=== PATIENT | female | born 1955 | race Caucasian/White ===

== ENCOUNTER 2020-05-08 12:58 | Outpatient (CLI) | payer OTHER, SELFPAY ==
--- NOTE | 2020-05-08 13:07 | CT_ITS ---
WS: [id number] LDCT LUNG CANCER SCREENING TECHNIQUE: Noncontrast CT of the chest with coronal and sagittal reformatted images. CLINICAL INFORMATION: HX OF TOBACCO USE/NICOTINE DEPENDENCE, CIGARETTES COMPARISON: None. DLP: 51.32 mGy.cm DIvol: 1.[address] scans at [facility] use at least one of these dose optimization techniques: automat ed exposure control; mA and/or kV adjustment per patient size (includes targeted exams where dose is matched to clinical indication); or iterative reconstruction. FINDINGS: Noncalcified 4 mm nodule right upper lobe. Additional noncalcified nodule right upper lobe measuring 5 mm. No mediastinal or hilar lymphadenopathy. Vascular calcification including coronary. Small esoph ageal hiatal hernia. CT/CT lung screening [id number] IMPRESSION: LUNG-RADS: 2-Benign Appearance or Behavior FOLLOW UP: 12 Month: Continue annual screening with LDCT
== END 2020-05-08 12:59 | disposition home or self-care (01) ==
LOC: RAD 13:04
PROVIDERS: Visit Provider Nurse Practitioner Family
DX: Z12.2 Encounter for screening for malignant neoplasm of respiratory organs (principal); Z87.891 Personal history of nicotine dependence
CPT/HCPCS: G0297

== ENCOUNTER → 2021-10-29 13:30 | Outpatient (BNVA) | payer OTHER, SELFPAY | PROVIDERS: PCP Nurse Practitioner Family; Referring Provider Nurse Practitioner Family; Visit Provider Specialist | DX: G30.9 Alzheimer's disease, unspecified (principal); F02.80 Dementia in other diseases classified elsewhere, unspecified severity, without behavioral disturbance, psychotic disturbance, mood disturbance, and anxiety | CPT/HCPCS: 96116; 99204; 99205 ==

== ENCOUNTER 2022-03-04 15:59 | Outpatient (CLI) | payer MEDICARE, SELFPAY ==
--- NOTE | 2022-03-04 16:28 | XR_ITS ---
WS: [id number] Lumbar spine, AP view, L5-S1 spot, both obliques, lateral view, 03/04/2022 Clinical Data: SI joint dysfunction Comparison: None. Findings: There is osteoarthritic change of all the lumbar vertebral bodies and of the lower thoracic vertebral bodies.. There is degenerative disc narrowing at L5-S1. No compression fractures or subluxation is s een. The oblique films show no spondylolysis. The transverse processes and SI joints are unremarkable. There is calcification in the wall of the ab dominal aorta but no aneurysm. XR/XR lumbar spine min 4V [id number] Impression: 1. Osteoarthritis of all the lumbar vertebral bodies. 2. Degenerative disc narrowing at L5-S1.
== END 2022-03-04 16:00 | disposition home or self-care (01) ==
PROVIDERS: Visit Provider Family Medicine
DX: M47.896 Other spondylosis, lumbar region (principal); G89.29 Other chronic pain; M54.50 Low back pain, unspecified; E78.5 Hyperlipidemia, unspecified; I10 Essential (primary) hypertension
CPT/HCPCS: 72110; 80053; 80061; 85025

== ENCOUNTER → 2022-09-09 12:21 | Outpatient (BNVA) | payer MEDICARE, OTHER, SELFPAY | PROVIDERS: Referring Provider Specialist; Visit Provider Specialist | DX: G30.9 Alzheimer's disease, unspecified (principal); F02.80 Dementia in other diseases classified elsewhere, unspecified severity, without behavioral disturbance, psychotic disturbance, mood disturbance, and anxiety | CPT/HCPCS: 99214 ==

== ENCOUNTER → 2023-02-08 14:53 | Outpatient (BNVA) | payer MEDICARE, OTHER, SELFPAY | PROVIDERS: Visit Provider Specialist | DX: G30.9 Alzheimer's disease, unspecified (principal); F02.80 Dementia in other diseases classified elsewhere, unspecified severity, without behavioral disturbance, psychotic disturbance, mood disturbance, and anxiety | CPT/HCPCS: 96116; 99213 ==

== ENCOUNTER → 2023-08-09 12:33 | Outpatient (BNVA) | payer MEDICARE, SELFPAY | PROVIDERS: Visit Provider Specialist | DX: G30.9 Alzheimer's disease, unspecified (principal); F02.80 Dementia in other diseases classified elsewhere, unspecified severity, without behavioral disturbance, psychotic disturbance, mood disturbance, and anxiety; F51.04 Psychophysiologic insomnia | CPT/HCPCS: 99213 ==

== ENCOUNTER → 2024-02-16 13:21 | Outpatient (BNVA) | payer MEDICARE, SELFPAY | PROVIDERS: Visit Provider Specialist | DX: R29.90 Unspecified symptoms and signs involving the nervous system (principal); G30.9 Alzheimer's disease, unspecified; F02.80 Dementia in other diseases classified elsewhere, unspecified severity, without behavioral disturbance, psychotic disturbance, mood disturbance, and anxiety; M54.50 Low back pain, unspecified; G89.29 Other chronic pain | CPT/HCPCS: 99213 ==

== ENCOUNTER → 2024-07-06 16:48 | Outpatient (BNVA) | payer MEDICARE, SELFPAY | DX: S43.034A Inferior dislocation of right humerus, initial encounter (principal); M19.011 Primary osteoarthritis, right shoulder; R52 Pain, unspecified; W19.XXXA Unspecified fall, initial encounter | CPT/HCPCS: 73030 ==

== ENCOUNTER 2024-07-06 17:26 | Emergency (ER) | payer MEDICARE, SELFPAY ==
[2024-07-06 17:55] VITALS: BP 107/73; PULSE 78; RESP 16; TEMP 36.7; O2SAT 95; BMI 39.0
[2024-07-06 18:55] VITALS: BP 129/84; PULSE 80; RESP 18; O2SAT 94
--- NOTE | 2024-07-06 19:03 | XRR_ITS ---
PROCEDURE INFORMATION: Exam: XR Right Shoulder Exam date and time: 07/06/2024 7:17 PM Age: 69 years old Clinical indication: Injury or trauma; Fall; Dislocation; Severity not specified; Shoulder; Right; Additional info: Shoulder reduction TECHNIQUE: Imaging protocol: Radiologic exam of the right shoulder. Views: 2 or more views. COMPARISON: CR XR shoulder RT min 2V* [id number] 07/06/2024 4:57 PM FINDINGS: Bones/joints: Status post reduction of the previously seen anterior inferior dislocation with current satisfactory alignment. There are severe degenerative changes across the acromioclavicular joint. Soft tissues: Glenohumeral joint effusion. XR/XR shoulder RT min 2V* [id number] IMPRESSION: Glenohumeral joint is currently in satisfactory alignment.
[2024-07-06] MEDS: ketamine 100 mg/mL Inj 5 mL IVP (19:06)
[2024-07-06 19:07] VITALS: BP 129/84; PULSE 82; RESP 19; O2SAT 94
[2024-07-06 19:10] VITALS: BP 130/85; PULSE 79; RESP 19; O2SAT 98
--- NOTE | 2024-07-06 19:13 | W.ED.EXTPRO ---
Documented by User: Cristhian Sarmiento DO 07/07/24 00:16 HPI - Extremity Problem General: Chief complaint: Extremity Injury, Upper Stated complaint: Risht shoulder injury Time Seen by Provider: 07/06/24 17:54 Related Data Home Medications Medication Instructions Recorded Confirmed albuterol sulfate 2.5 mg/3 mL 2.5 mg inhalation Q4H PRN 10/29/21 07/06/24 (0.083 %) solution for nebulization Previous Rx's Medication Instructions Recorded fluticasone 250 mcg-salmeterol 50 1 inh inhalation Q12H #60 ea 11/27/22 mcg/dose blistr powdr for inhalation (Advair Diskus) albuterol sulfate 90 mcg/actuation 2 inh inhalation Q6H PRN shortness 01/15/23 breath activated powder inhaler of breath #1 ea rosuvastatin 20 mg tablet 20 mg PO DAILY #90 tabs 01/15/23 atenolol 25 mg tablet See Rx Instructions .Route 04/01/23 .COMPLEX #30 tabs amitriptyline 50 mg tablet See Rx Instructions .Route 02/01/24 .COMPLEX #30 tabs galantamine 8 mg tablet 8 mg PO BID 90 days #180 tabs 05/17/24 memantine 10 mg tablet See Rx Instructions .Route 06/06/24 .COMPLEX #180 tabs hydrocodone 5 mg-acetaminophen 325 1 tab PO Q6H PRN pain #14 tabs 07/06/24 mg tablet Allergies Allergy/AdvReac Type Severity Reaction Status Date / Time No Known Allergies Allergy Verified 07/06/24 16:43 [facility] ED PFSH: Medical History History of stroke COPD (chronic obstructive pulmonary disease) Benign essential HTN Surgical History S/P right oophorectomy Family History Other CAD (coronary artery disease) Dementia Hyperlipidemia Lung disease Stroke Denies family history of Diabetes Clotting disorder Psychiatric illness Chronic kidney disease (CKD) Suicide Anesthesia complication Bleeding disorder Family history of premature coronary artery disease Cancer Hypertension Social History Smoking and tobacco/nicotine status: former use of tobacco/nicotine Procedures Procedural Sedation Presedation Evaluation: Right shoulder dislocation anterior, ASA Class: II Preparation: phototypesetting equipment monitor applied, pulse oximeter, supplemental O2 applied, suction/airway equipment at bedside and IV secured Ketamine: IV Ketamine dose (mg): 100 Patient Tolerated Procedure: well and no complications Course Vital Signs: Vital signs: Vital Signs Temperature 98.1 F 07/06/24 17:55 Pulse Rate 78 07/06/24 21:31 Respiratory Rate 18 07/06/24 21:31 Blood Pressure 127/73 07/06/24 21:31 Pulse Oximetry 96 07/06/24 21:31 Oxygen Delivery Me thod Nasal Cannula 07/06/24 19:10 Oxygen Flow Rate 2 07/06/24 19:10 MDM - Extremity (Nontraumatic) Lab Data Radiology Impressions Shoulder X-Ray 07/06/24 19:03 IMPRESSION: Glenohumeral joint is currently in satisfactory alignment. All radiology interpretation(s) finalized by discharge Discharge Plan Discharge Patient Disposition: Home Clinical Impression: Closed inferior dislocation of right shoulder Condition: Stable Prescriptions: New hydrocodone-acetaminophen 5-325 mg tablet 1 tab PO Q6H PRN (Reason: pain) Qty: 14 0RF No Action albuterol sulfate 2.5 mg /3 mL (0.083 %) solution for nebulization 2.5 mg inhalation Q4H PRN fluticasone propion-salmeterol [Advair Diskus] 250-50 mcg/dose blister with device 1 inh inhalation Q12H Qty: 60 3RF albuterol sulfate 90 mcg/actuation aerosol powdr breath activated 2 inh inhalation Q6H PRN (Reason: shortness of breath) Qty: 1 3RF rosuvastatin 20 mg tablet 20 mg PO DAILY Qty: 90 1RF Rx Instructions: Please disregard prior Rx atenolol 25 mg tablet See Rx Instructions .ROUTE .COMPLEX Qty: 30 0RF Dose Instruction: TAKE ONE TABLET BY MOUTH DAILY Rx Instructions: TAKE ONE TABLET BY MOUTH DAILY amitriptyline 50 mg tablet See Rx Instructions .ROUTE .COMPLEX Qty: 30 5RF Dose Instruction: TAKE ONE TABLET BY MOUTH DAILY FOR 30 DAYS Rx Instructions: TAKE ONE TABLET BY MOUTH DAILY FOR 30 DAYS galantamine 8 mg tablet 8 mg PO BID 90 Days Qty: 180 5RF memantine 10 mg tablet See Rx Instructions .ROUTE .COMPLEX Qty: 180 3RF Dose Instruction: TAKE ONE TABLET BY MOUTH TWICE A DAY Rx Instructions: TAKE ONE TABLET BY MOUTH TWICE A DAY Discharge Orders: Discharge ED (Routine); Ordered 07/06/24 Ordered By: Michelle Harding Discharge Diet: Usual diet Discharge Activity: Limit activity as instructed Patient Instructions: Shoulder Dislocation (ED), Closed Reduction (ED), Shoulder Immobilizer (ED), Opioid Safety, Pain Management Activity Restrictions/Additional Instructions: Based on your initial x-ray after your fall, you did have a dislocation of your right shoulder. Here in the emergency department we were able to provide sedation and reduce your shoulder back into normal alignment. Unfortunately, with dislocations, you can cause injury by tearing or overstretching the connective tissues. All the bones show no signs of any acute fracture on the x-ray, I am requesting our case management workers get you set up with an orthopedic follow-up for an evaluation of potential soft tissue injury/connective tissue injury of your shoulder so we can make sure that you regain mobility and strength back in the joint. The emergency room physician here leida has also prescribed you some pain medication. I did provide you some prior to your discharge to have on board overnight for comfort but, you will want to lease picker your prescription in the morning. You need to wear your sling and swath at all times. Do not attempt to use the right upper extremity until you have been seen and reevaluated by orthopedics. Coding Level of Care Code ED Head Orthopedic Team Physician for Chg Fwd Documented by User: KHURRAM Felipe 07/07/24 02:23 HPI - Extremity Problem General: Chief complaint: Extremity Injury, Upper Stated complaint: Risht shoulder injury Time Seen by Provider: 07/06/24 17:54 Source: patient Mode of arrival: ambulatory Limitations: no limitations History of Present Illness: Patient presents emergency department today accompanied by family for evaluation treatment of right shoulder injury. Patient reports that earlier today she was trying to hang some curtains. States she sustained a mechanical fall and landed on her right shoulder. Since that time, has had decreased range of motion and pain to the right shoulder. Was originally seen and evaluated at a walk-in clinic where x-ray revealed an inferior dislocation of her right shoulder. She is still neurovascularly intact. States she has not taken anything acutely for her pain though she normally takes ibuprofen for her typical back and bodyaches. States her last p.o. intake was dinner last night. Related Data Home Medications Medication Instructions Recorded Confirmed albuterol sulfate 2.5 mg/3 mL 2.5 mg inhalation Q4H PRN 10/29/21 07/06/24 (0.083 %) solution for nebulization Previous Rx's Medication Instructions Recorded fluticasone 250 mcg-salmeterol 50 1 inh inhalation Q12H #60 ea 11/27/22 mcg/dose blistr powdr for inhalation (Advair Diskus) albuterol sulfate 90 mcg/actuation 2 inh inhalation Q6H PRN shortness 01/15/23 breath activated powder inhaler of breath #1 ea rosuvastatin 20 mg tablet 20 mg PO DAILY #90 tabs 01/15/23 atenolol 25 mg tablet See Rx Instructions .Route 04/01/23 .COMPLEX #30 tabs amitriptyline 50 mg tablet See Rx Instructions .Route 02/01/24 .COMPLEX #30 tabs galantamine 8 mg tablet 8 mg PO BID 90 days #180 tabs 05/17/24 memantine 10 mg tablet See Rx Instructions .Route 06/06/24 .COMPLEX #180 tabs hydrocodone 5 mg-acetaminophen 325 1 tab PO Q6H PRN pain #14 tabs 07/06/24 mg tablet Allergies Allergy/AdvReac Type Severity Reaction Status Date / Time No Known Allergies Allergy Verified 07/06/24 16:43 Review of Systems General: Reports: 10 or more systems reviewed and unremarkable except in HPI and below PFSH ED PFSH: Medical History History of stroke COPD (chronic obstructive pulmonary disease) Benign essential HTN Surgical History S/P right oophorectomy Family History Other CAD (coronary artery disease) Dementia Hyperlipidemia Lung disease Stroke Denies family history of Diabetes Clotting disorder Psychiatric illness Chronic kidney disease (CKD) Suicide Anesthesia complication Bleeding disorder Family history of premature coronary artery disease Cancer Hypertension Social History Smoking and tobacco/nicotine status: former use of tobacco/nicotine Physical Exam Const: COMMON NORMALS: no acute distress, patient oriented x3 and alert OTHER: Patient is pleasant, social, calm. Answers her own history. Vital signs are stable. HENMT: COMMON NORMALS: normocephalic, atraumatic and hearing grossly normal bilaterally HEAD & SCALP: normocephalic and atraumatic Eye: COMMON NORMALS: Equal, round and reactive pupils present, EOMs intact bilaterally and conjunctivae normal CONJUNCTIVA: Yes conjunctivae normal PUPIL: Yes Equal, round and reactive pupils present Neck/C-Spine: COMMON NORMALS: full ROM and no JVD Lymph: LYMPHATIC: no lymphadenopathy noted Resp: COMMON NORMALS: normal respiratory effort, No retractions and No use of accessory muscles Cardio: COMMON NORMALS: no JVD and regular rate RATE: regular rate Extremity: NARRATIVE EXTREMITY EXAM: Patient's right upper extremity is held with a flexed elbow, close to the body. Flexion extension capabilities to the fingers of the right hand. Nontender at the right elbow. No range of motion of the right shoulder at this time. Neuro: COMMON NORMALS: patient oriented x3, no sensory deficits noted and gait normal SENSORIUM/ORIENTATION: Yes alert Psych: COMMON NORMALS: mental status grossly normal, Normal thought process present, cooperative and normal affect THOUGHT PROCESS: Normal thought process present Skin: COMMON NORMALS: no rashes or lesions noted and turgor normal GENERAL SKIN EXAM: no rashes or lesions noted and turgor normal Procedures Orthopedic Joint Reduction Joint #1: Time Out Performed: Yes (Consent signed at patient bedside to confirm patient and procedure) Side: right Joint Reduction Location: shoulder Analgesia: procedural sedation (Ketamine) Shoulder Technique Used (if applicable): other (Hand pronation, elbow flexion, and hyper adduction of shoulder) Technique used: direct manipulation Post-reduction neuro exam: intact Post-reduction vascular: intact Post Reduction X-Ray Obtained: Yes Post Reduction X-Ray Results: reduced Splint Applied: Yes (Sling and swath) Patient Tolerated Procedure: well and no complications Additional Comments: Patient indicated feeling some tingling in the arm after the procedure but, had rotated in the bed and was putting pressure on her right shoulder. Patient was put back in her previous position onto her left shoulder with a pillow underneath her right shoulder and full sensation returned. Course Vital Signs: Vital signs: Vital Signs Temperature 98.1 F 07/06/24 17:55 Pulse Rate 78 07/06/24 21:31 Respiratory Rate 18 07/06/24 21:31 Blood Pressure 127/73 07/06/24 21:31 Pulse Oximetry 96 07/06/24 21:31 Oxygen Delivery Me thod Nasal Cannula 07/06/24 19:10 Oxygen Flow Rate 2 07/06/24 19:10 MDM - Extremity (Nontraumatic) Medical Decision Making Patient presented to the emergency department today for evaluation and treatment of acute right shoulder dislocation. Patient had a mechanical fall resulting on her impacting her right shoulder. I did review the x-ray image from urgent care and agree with the finding. Discussed options with the patient for reduction including acute pain medication and manipulation versus conscious sedation. Patient states she does not want to remember anything and does not want to feel any pain and would like to proceed with conscious sedation. Discussed case with Dr. Sarmiento. With his recommendation, did draw up ketamine for the procedure. Myself, Dr. Sarmiento, nurse, and respiratory were all present in the room during the procedure. Patient tolerated her ketamine extremely well and resulted in good analgesia and sedation. We were able to manipulate the right shoulder with pronation of the hand, flexion of the elbow, and hyper adduction of the right shoulder then with a gentle traction placed on the upper arm, patient's joint was felt to pop back into place. Patient shoulder was then put through full range of motion including flexion, abduction, adduction, etc. which resulted in no resistance or decreased range of motion. Patient is on was put into a sling and swath and postreduction film obtained. Postreduction film shows realignment of the right shoulder joint. Nurse came to let me know that the patient was complaining of some tingling in the right arm however, patient had rolled from the position we had her in originally on her left shoulder with a pillow behind her right shoulder and was now putting pressure directly on the right shoulder. After repositioning the patient, she had full return of sensation into the right arm. He was treated with oral painkiller prior to discharge and Dr. Sarmeinto provided a prescription for pain medication to be picked up continued in the morning. Patient was also given an order to case management for follow-up with orthopedics as I have concerns about the connective tissues at the joint. She was given instructions regarding her sling and swath. Patient had full resolution of sedation symptoms and was at her baseline at discharge. Was able to ambulate out independently from the ER. Discussion of follow-up, sling use, and pain medication resulted in patient verbalizing understanding and agreement to treatment plan. Differential Diagnosis Unlikely herpes zoster, gout, cellulitis, superficial thrombophlebitis or deep venous thrombosis of upper extremity Lab Data Radiology Impressions Shoulder X-Ray 07/06/24 19:03 IMPRESSION: Glenohumeral joint is currently in satisfactory alignment. Discharge Plan Discharge Patient Disposition: Home Clinical Impression: Closed inferior dislocation of right shoulder Condition: Stable Prescriptions: New hydrocodone-acetaminophen 5-325 mg tablet 1 tab PO Q6H PRN (Reason: pain) Qty: 14 0RF No Action albuterol sulfate 2.5 mg /3 mL (0.083 %) solution for nebulization 2.5 mg inhalation Q4H PRN fluticasone propion-salmeterol [Advair Diskus] 250-50 mcg/dose blister with device 1 inh inhalation Q12H Qty: 60 3RF albuterol sulfate 90 mcg/actuation aerosol powdr breath activated 2 inh inhalation Q6H PRN (Reason: shortness of breath) Qty: 1 3RF rosuvastatin 20 mg tablet 20 mg PO DAILY Qty: 90 1RF Rx Instructions: Please disregard prior Rx atenolol 25 mg tablet See Rx Instructions .ROUTE .COMPLEX Qty: 30 0RF Dose Instruction: TAKE ONE TABLET BY MOUTH DAILY Rx Instructions: TAKE ONE TABLET BY MOUTH DAILY amitriptyline 50 mg tablet See Rx Instructions .ROUTE .COMPLEX Qty: 30 5RF Dose Instruction: TAKE ONE TABLET BY MOUTH DAILY FOR 30 DAYS Rx Instructions: TAKE ONE TABLET BY MOUTH DAILY FOR 30 DAYS galantamine 8 mg tablet 8 mg PO BID 90 Days Qty: 180 5RF memantine 10 mg tablet See Rx Instructions .ROUTE .COMPLEX Qty: 180 3RF Dose Instruction: TAKE ONE TABLET BY MOUTH TWICE A DAY Rx Instructions: TAKE ONE TABLET BY MOUTH TWICE A DAY Discharge Orders: Discharge ED (Routine); Ordered 07/06/24 Ordered By: Michelle Harding Discharge Diet: Usual diet Discharge Activity: Limit activity as instructed Patient Instructions: Shoulder Dislocation (ED), Closed Reduction (ED), Shoulder Immobilizer (ED), Opioid Safety, Pain Management Activity Restrictions/Additional Instructions: Based on your initial x-ray after your fall, you did have a dislocation of your right shoulder. Here in the emergency department we were able to provide sedation and reduce your shoulder back into normal alignment. Unfortunately, with dislocations, you can cause injury by tearing or overstretching the connective tissues. All the bones show no signs of any acute fracture on the x-ray, I am requesting our case management workers get you set up with an orthopedic follow-up for an evaluation of potential soft tissue injury/connective tissue injury of your shoulder so we can make sure that you regain mobility and strength back in the joint. The emergency room physician here leida has also prescribed you some pain medication. I did provide you some prior to your discharge to have on board overnight for comfort but, you will want to lease picker your prescription in the morning. You need to wear your sling and swath at all times. Do not attempt to use the right upper extremity until you have been seen and reevaluated by orthopedics. Coding Level of Care Code ED Head Orthopedic Team Physician for Marcia Ricardo
[2024-07-06] MEDS: HYDROcodone-acetaminophen 5-325 mg Tablet 1 TAB PO (20:46)
[2024-07-06 21:31] VITALS: BP 127/73; PULSE 78; RESP 18; O2SAT 96
== END 2024-07-06 21:32 | disposition home or self-care (01) ==
PROVIDERS: Emergency Provider Physician Assistant
DX: S43.084A Other dislocation of right shoulder joint, initial encounter (principal); J44.9 Chronic obstructive pulmonary disease, unspecified; I10 Essential (primary) hypertension; X58.XXXA Exposure to other specified factors, initial encounter; Z87.891 Personal history of nicotine dependence
CPT/HCPCS: 23650; 73030; 99152; 99285; J3490

== ENCOUNTER → 2025-02-14 10:03 | Outpatient (BNVA) | payer MEDICARE, SELFPAY | PROVIDERS: Visit Provider Specialist | DX: R29.90 Unspecified symptoms and signs involving the nervous system (principal); G30.9 Alzheimer's disease, unspecified; F02.80 Dementia in other diseases classified elsewhere, unspecified severity, without behavioral disturbance, psychotic disturbance, mood disturbance, and anxiety; M54.50 Low back pain, unspecified; G89.29 Other chronic pain | CPT/HCPCS: 99213 ==